=== PATIENT | male | born 2000 | race African-American/Black ===

== ENCOUNTER 2024-10-03 23:44 | Emergency (ER) | payer BC, MEDICAID ==
[~2024-10-03] VITALS: Ht 180.3 cm; Wt 72.1 kg
[2024-10-03 23:50] VITALS: O2SAT 100
[2024-10-04 00:04] VITALS: BP 128/78; PULSE 79; RESP 17; TEMP 98.8; O2SAT 98
[2024-10-04] MEDS ORDERED: LORAZEPAM 1MG TABLET PO ONE (00:45)
[2024-10-04 01:18] LABS: BASOPHILS % 0.2 % (0.0-2.0); EOSINOPHILS % 0.2 % (0.0-5.0); HEMATOCRIT. 41.8 % (42.0-52.0); HEMOGLOBIN. 14.6 g/dL (14.0-18.0); LYMPHOCYTES % 8.7 % (20.0-50.0); MEAN CORPUSCULAR HEMOGLOBIN 29.1 pg (28.0-32.0); MEAN CORPUSCULAR HGB CONC 34.9 g/dL (31.0-37.0); MEAN CORPUSCULAR VOLUME 83.4 fL (80.0-94.0); MEAN PLATELET VOLUME 7.8 fl (7.4-10.4); MONOCYTES % 6.4 % (2.0-8.0); NEUTROPHILS % 84.5 % (40.0-76.0); PLATELET 300 x1000/uL (130-400); RED BLOOD CELL COUNT 5.01 mill/uL (4.7-6.1); RED CELL DISTRIBUTION WIDTH 13.3 % (11.6-14.6); WHITE BLOOD COUNT 9.7 x1000/uL (4.5-11.0)
[2024-10-04 01:29] LABS: CARBON DIOXIDE 28 mEq/L (21-32); CHLORIDE 106 mEq/L (98-107); POTASSIUM 4.1 mEq/L (3.5-5.1); SODIUM 139 mEq/L (136-145)
[2024-10-04 01:30] LABS: CALCIUM 9.2 mg/dL (8.7-10.4)
[2024-10-04 01:34] LABS: CREATININE 1.2 mg/dL (0.6-1.3); GLUCOSE 117 mg/dL (70-105)
[2024-10-04 01:35] LABS: UREA NITROGEN BLOOD 10 mg/dL (9-23)
[2024-10-04 02:22] LABS: ETHANOL BLOOD < 10 mg/dL (<10); TROPONIN I HIGH SENSITIVITY < 4 ng/L (3.0-53)
== END 2024-10-04 01:14 | disposition home or self-care (01) ==
LOC: ER 23:44
DX: R07.89 Other chest pain (principal); F12.10 Cannabis abuse, uncomplicated; Z98.890 Other specified postprocedural states
CPT/HCPCS: 36415; 71045; 80048; 80320; 84484; 85025; 93005; 99285; G0480